=== PATIENT | female | born 1960 | race Asian ===

== ENCOUNTER 2021-03-17 18:08 | Emergency (ER) | payer BC ==
[~2021-03-17] VITALS: Ht 157.5 cm; Wt 68.0 kg
[2021-03-17 18:11] VITALS: BP_SYST 150
[2021-03-17] MEDS ORDERED: MORPHINE 4 MG INJ. 4 MG/ML VIAL IM ONE ×2 (18:30→19:00)
[2021-03-17] MEDS ORDERED: HYDR-3917 PO (18:40)
[2021-03-17 19:12] VITALS: BP_SYST 150
[2021-03-17] MEDS ORDERED: MORPHINE 4 MG INJ. 4 MG/ML VIAL ONE (20:14)
== END 2021-03-17 19:12 | disposition home or self-care (01) ==
LOC: SED 18:08
DX: S82.842A Displaced bimalleolar fracture of left lower leg, initial encounter for closed fracture (principal); W18.39XA Other fall on same level, initial encounter; Y93.89 Activity, other specified; Y92.89 Other specified places as the place of occurrence of the external cause; Y99.8 Other external cause status
CPT/HCPCS: 29515; 73610; 96372; 99283; J2270

== ENCOUNTER 2021-03-19 09:40 | Day surgery (SDC) | payer BC, SELFPAY ==
[~2021-03-19] VITALS: Ht 157.5 cm; Wt 68.0 kg
[~2021-03-19 09:40] MED LIST: HYDR-3917 PO
[2021-03-19 11:17] LABS: BASOPHILS % (AUTO) 0.3 % (0.0-2.0); EOSINOPHILS # (AUTO) 0.1 K/uL (0.0-0.4); EOSINOPHILS % (AUTO) 0.6 % (0.0-4.0); HEMATOCRIT 35.7 % (36-48); HEMOGLOBIN 11.8 g/dL (12.0-16.0); LYMPHOCYTES # (AUTO) 3.6 K/uL (1.0-5.5); LYMPHOCYTES % (AUTO) 33.7 % (20.5-51.5); MEAN CORPUSCULAR HEMOGLOBIN 31 pg (27-31); MEAN CORPUSCULAR HGB CONC 33 % (32-36); MEAN CORPUSCULAR VOLUME 93 fL (79.0-98.0); MONOCYTES # (AUTO) 0.9 K/uL (0.0-1.0); MONOCYTES % (AUTO) 8.8 % (1.7-9.3); NEUTROPHILS % (AUTO) 56.6 % (40.0-70.0); PLATELET COUNT (AUTO) 209 K/uL (130-430); RED BLOOD CELL COUNT(AUTO) 3.85 MIL/uL (4.2-6.2); RED CELL DISTRIBUTION WIDTH 13.3 % (9.0-15.0); WHITE BLOOD COUNT (AUTO) 10.6 K/uL (4.8-10.8)
[2021-03-19 11:26] LABS: BILIRUBIN,URINE NEGATIVE (NEGATIVE); BLOOD, URINE 1+ (NEGATIVE); CLARITY/URINE CLEAR (CLEAR); COLOR,URINE YELLOW (YELLOW); GLUCOSE,URINE NEGATIVE (NEGATIVE); KETONES,URINE TRACE (NEGATIVE); LEUKOCYTE ESTERASE ,URINE NEGATIVE (NEGATIVE); NITRITE, URINE NEGATIVE (NEGATIVE); PH,URINE 6.5 (5.0-8.0); PROTEIN URINE NEGATIVE (NEGATIVE); UROBILINOGEN,URINE 0.2 (0.2-1.0)
[2021-03-19 11:35] LABS: BACTERIA,URINE FEW /HPF (None Seen); WBC,URINE 0-3 /HPF (0-3)
[2021-03-19 11:36] LABS: MUCUS,URINE 1+ /LPF (None Seen)
[2021-03-19] MEDS ORDERED: METOCLOPRAMIDE HCL 10 MG/2 ML VIAL IVP ONE (12:12)
[2021-03-19] MEDS ORDERED: BUPIVACAINE /EPINEPHRINE/PF 0.25% 30 ML VIAL INJ ONE (12:12)
[2021-03-19] MEDS ORDERED: CEFAZOLIN 2 GM IVPB PREMIX 50 ML IV ONE (12:12)
[2021-03-19] MEDS ORDERED: MIDAZOLAM HCL 5 MG/5 ML VIAL IVP ONE (12:12)
[2021-03-19] MEDS ORDERED: LR 1,000 ML IV.SOLN IV ONE (12:12)
[2021-03-19] MEDS ORDERED: ONDANSETRON HCL 4 MG/2 ML VIAL IVP ONE (12:12)
[2021-03-19] MEDS ORDERED: POLYMYXIN 500,000/BACIT.10,000 UNITS in NS IRR 1 L IR ONE (12:40)
[2021-03-19] MEDS ORDERED: KETOROLAC TROMETHAMINE 30 MG VIAL IVP PRN (13:00)
[2021-03-19] MEDS ORDERED: LR 1,000 ML IV SCH (13:00)
[2021-03-19] MEDS ORDERED: ONDANSETRON HCL 4 MG/2 ML VIAL IVP PRN (13:00)
[2021-03-19 15:35] VITALS: BP_SYST 134
== END 2021-03-19 15:35 | disposition home or self-care (01) ==
LOC: SDS 09:40 → SMU 10:23 → SDS 15:35
PROVIDERS: ATTEND Orthopaedic Surgery
DX: S82.842A Displaced bimalleolar fracture of left lower leg, initial encounter for closed fracture (principal); Z79.899 Other long term (current) drug therapy; W01.0XXA Fall on same level from slipping, tripping and stumbling without subsequent striking against object, initial encounter; Y93.89 Activity, other specified; Y92.89 Other specified places as the place of occurrence of the external cause; Y99.8 Other external cause status
CPT/HCPCS: 27814; 36415; 71046; 76000; 81000; 85025; 87426; 93005; C1713 ×4; C1763; J0690; J2250; J2405; J2765; J3490; J7120